=== PATIENT | female | born 1990 | race Caucasian/White ===

== ENCOUNTER 2020-10-29 02:00 | Inpatient (IN) | payer BC, OTHER, SELFPAY ==
[2020-10-29] MEDS ORDERED: Oxytocin 10 UNITS/ML VIAL ONE (02:11)
[2020-10-29] MEDS ORDERED: Bisacodyl 10 MG SUPP PR PRN (02:20)
[2020-10-29] MEDS ORDERED: Promethazine HCl 25 MG/ML VIAL IM PRN (02:20)
[2020-10-29] MEDS ORDERED: hydrALAZINE 20 MG/ML VIAL SLOW IVP PRN ×2 (02:20)
[2020-10-29] MEDS ORDERED: Milk Of Magnesia 30 ML UDCUP PO PRN (02:20)
[2020-10-29] MEDS ORDERED: Ondansetron PF 4 MG/2 ML Vial IVP PRN (02:20)
[2020-10-29] MEDS ORDERED: Adacel (T-DAP) 0.5 ML SYRINGE IM ONE (02:20)
[2020-10-29] MEDS ORDERED: Acetaminophen 500 MG TAB PO PRN (02:20)
[2020-10-29] MEDS ORDERED: Boostrix 0.5 ML (Tdap) VIAL IM ONE (02:45)
[2020-10-29] MEDS ORDERED: NS w/ Oxytocin 30 units 500 ML IV SCH (02:45)
[2020-10-29 03:17] VITALS: BMI 36.6
[2020-10-29 04:40] LABS: Hemoglobin 12.8 g/dL (12.0-15.5); Mean Corpuscular HGB CONC 34.1 g/dL (32.0-36.0); Mean Corpuscular Volume 87.8 fl (81.6-98.3); Mean Platelet Volume 11.1 fl (7.4-10.4); Platelet Count 134 10x3/uL (150-450); RBC Distribution Width 15.2 % (11.5-14.5); Red Blood Cell (RBC) Count 4.27 10x6/uL (3.90-5.03); White Blood Cell (WBC) Count 10.3 10x3/uL (3.5-10.5)
[2020-10-29 05:23] LABS: Hep B Surf Ag Non-Reactive S/CO (NonReactive); Syphilis Antibody Nonreactive (Nonreactive); Syphilis Antibody Index 0.06 S/CO (<1.00 Non-Reactive)
[2020-10-29 05:29] LABS: HBSAg Index 0.15 S/CO (0-0.99)
[2020-10-29] MEDS: Docusate Calcium (SURFAK) 240 MG CAP PO SCH ×2 (09:03→23:42)
[2020-10-29] MEDS: Ferrous Sulfate 325 MG TAB PO SCH ×2 (09:05→16:31)
[2020-10-29 15:10] LABS: SARS-CoV-2 PCR by NAA Not Detected (NotDetected)
[2020-10-29] MEDS ORDERED: Lanolin Ointment 7 GM TUBE TOP PRN (23:51)
[2020-10-30] MEDS: Docusate Calcium (SURFAK) 240 MG CAP PO SCH ×2 (09:09→21:23)
[2020-10-30] MEDS: Ferrous Sulfate 325 MG TAB PO SCH ×2 (09:09→16:53)
[2020-10-31 07:50] VITALS: BP 107/64; TEMP 98.3
[2020-10-31] MEDS: Ferrous Sulfate 325 MG TAB PO SCH (07:52)
[2020-10-31] MEDS: Docusate Calcium (SURFAK) 240 MG CAP PO SCH (07:52)
== END 2020-10-31 13:50 | disposition home or self-care (01) | DRG 776 ==
LOC: CSHERS 02:00 → CSHLD 02:02 → CSHPP 04:25
PROVIDERS: ADMIT Obstetrics & Gynecology; ATTEND Obstetrics & Gynecology
DX: Z39.0 Encounter for care and examination of mother immediately after delivery (principal); Z20.822 Contact with and (suspected) exposure to COVID-19
CPT/HCPCS: 85027; 86780; 86850; 86900; 86901; 87340; 87635; 88307; U0003; U0005